=== PATIENT | male | born 1950 | race Caucasian/White ===

== ENCOUNTER → 2023-10-11 12:34 | Outpatient (REF) | payer OTHER, SELFPAY | LOC: PAVMRI 12:34 | PROVIDERS: ATTENDING PHYSICIAN Student in an Organized Health Care Education/Training Program | DX: R51.9 Headache, unspecified (principal) | CPT/HCPCS: 70551 ==

== ENCOUNTER 2023-10-22 13:12 | Emergency (ER) | payer OTHER, SELFPAY ==
[2023-10-22 13:17] VITALS: BP 137/65
--- NOTE | 2023-10-22 15:59 | ED.GENMED ---
History of Present Illness
General
Chief Complaint: Back Pain
Source: patient
Exam Limitations: none
Time Seen by Provider: 10/22/23 15:50
Travel History
Have you had any contact with someone who has COVID-19?: No
Do you have any symptoms of coronavirus? Fever > 100 degrees, chills, cough, shortness of breath, sore throat, loss of taste or smell, muscle aches, or headache?: No
History of Present Illness
History of Present Illness:
Patient pulled his back out playing top golf. No abdominal pain. No distal numbness tingling weakness. This happens occasionally. History of chronic back issues. Patient request steroids. Does not want other significant pain management or
x-rays. No bowel or bladder issues.
Past History
Past History
ED Past Medical History: Arrthythmia (afib on Eliquis and Flecinide prn), Cancer (Prostate), GERD, HTN and Other (neck/Back pain)
ED Past Surgical History: Orthopedic and Urological
Patient has exhibited threatening behavior?: No
PSI?: No
Social History
Tobacco: Non-smoker
Review of Systems
Review of Systems
All Other Systems: Not applicable
Constitutional: Denies fever or chills
Phy Exam
Physical Exam
Physical Exam:
General: Nontoxic appearing in no distress. Sitting up on the edge of the stretcher in no obvious distress.
Skin: Warm and dry, no rash
Neuro: Alert, nontoxic, grossly nonfocal
Psychiatric: Good eye contact and appropriate
Musculoskeletal: Uncomfortable with the active standing from a sitting position. Decreased flexion at the hip. Good lower extremity strength. No spinal tenderness. No warmth or erythema. Patient points to the lower paralumbar area as the source
of the pain.
Course
Orders/Labs/Results
Orders:
Orders
10/22/23 15:58
Acetaminophen [Tylenol] 1,000 mg PO NOW STA
Prednisone [Deltasone] 50 mg PO NOW STA
Vital Signs
Initial and Last Documented VS:
Initial Vital Signs
Temp Pulse Resp BP Pulse Ox
98.0 F 61 16 137/65 98
10/22/23 13:17 10/22/23 13:17 10/22/23 13:17 10/22/23 13:17 10/22/23 13:17
Last Documented Vital Signs
Temp Pulse Resp BP Pulse Ox
98.0 F 61 16 137/65 98
10/22/23 13:17 10/22/23 13:17 10/22/23 13:17 10/22/23 13:17 10/22/23 13:17
MDM/Problems Addressed
Differential Diagnosis Includes:
Patient with muscular leg low back pain. Nothing to point to any significant nerve impingement. No bowel or bladder no distal numbness tingling or weakness. No acute trauma. No indication for lumbar x-rays at this time. Steroids and follow-up.
*Pulse Oximetry
Patient hypoxic: no
*Critical Care Note
Total Time (30-74mins, 75-104mins- exclusive of procedures): Not Applicable
Data Reviewed
Review of Other/Old Records Reveals: Records
ED Attending Note
-
Portions of this chart may have been created with voice recognition software.� Occasional wrong word or��sound alike� substitutions may have occurred due to the inherent limitations of voice recognition software.
Discharge Plan
Departure
Patient Disposition: Home (Routine Discharge)
Date of Disposition: 10/22/23
Time of Disposition: 16:01
Patient with high blood pressure during this ER visit?: Yes
Discharge Problem:
Low back strain
Instructions: Low Back Pain (DC), BLOOD PRESSURE
Prescriptions:
New
prednisone 50 mg tablet
50 mg PO DAILY Qty: 5 0RF
No Action
Flecainide
1 tab PO PRN PRN (Reason: atrial fib)
famotidine 20 MG tablet
20 mg PO DAILY
hydrochlorothiazide 12.5 MG tablet
12.5 mg PO DAILY
apixaban [Eliquis] 5 MG tablet
5 mg PO BID
metoprolol tartrate 25 MG tablet
25 mg PO BID Qty: 30 0RF
ondansetron 4 mg tablet,disintegrating
4 mg PO Q8H PRN (Reason: nausea and vomiting) Qty: 10 0RF
Referrals:
Ju Javier MD [Family Provider] - Follow up in 2-3 days
Activity Restrictions/Additional Instructions:
Tylenol for pain
Recheck with increased pain numbness tingling weakness fever or any other concerning symptoms
Interventions
Interventions:
*ED COVID-19 Vaccine History Last Done: 10/22/23 13:17
Discharge Date and Time
Print Language: CHILEAN
[2023-10-22] MEDS: DELTASONE 50 MG PO (16:19)
[2023-10-22] MEDS: TYLENOL 1000 MG PO (16:20)
[2023-10-22 16:42] VITALS: BP 141/74
== END 2023-10-22 16:43 | disposition home or self-care (01) ==
LOC: EMR 13:12
PROVIDERS: EMERGENCY PHYSICIAN Emergency Medicine; FAMILY PHYSICIAN Student in an Organized Health Care Education/Training Program
DX: S39.012A Strain of muscle, fascia and tendon of lower back, initial encounter (principal); X58.XXXA Exposure to other specified factors, initial encounter; I48.91 Unspecified atrial fibrillation; K21.9 Gastro-esophageal reflux disease without esophagitis; I10 Essential (primary) hypertension
CPT/HCPCS: 99282

== ENCOUNTER → 2024-01-23 12:35 | Outpatient (REF) | payer OTHER, SELFPAY | LOC: HWRAD 12:35 | PROVIDERS: ATTENDING PHYSICIAN Student in an Organized Health Care Education/Training Program | DX: M25.511 Pain in right shoulder (principal) | CPT/HCPCS: 73020; 73060 ==

== ENCOUNTER → 2024-04-17 06:38 | Outpatient (REF) | payer OTHER, SELFPAY | LOC: PAVMRI 06:38 | PROVIDERS: ATTENDING PHYSICIAN Specialist; FAMILY PHYSICIAN Student in an Organized Health Care Education/Training Program | DX: M25.511 Pain in right shoulder (principal) | CPT/HCPCS: 73221 ==

== ENCOUNTER → 2024-06-21 15:10 | Outpatient (REF) | payer OTHER, SELFPAY ==
[2024-06-21 16:25] LABS: % Basophils 0.6 % (0-2); % Eosinophils 1.7 % (0-6); % Immature Granulocytes 0.4 % (0-0.5); % Lymphocytes 13.1 % (20.5-51.1); % Monocytes 9.6 % (1.7-9.3); % Neutrophils 74.6 % (42.2-75.2); Absolute Basophils 0.1 10^3/uL (0-0.2); Absolute Eosinophils 0.2 10^3/uL (0-0.7); Absolute Lymphocytes 1.2 10^3/uL (1.2-3.4); Absolute Monocytes 0.9 10^3/uL (0.1-0.6); Absolute Neutrophils 6.9 10^3/uL (1.4-6.5); Hematocrit 40.1 % (39.0-52.0); Mean Corp Hgb Conc. 32.4 g/dL (33.0-37.0); Mean Corpuscular Hgb 29.1 pg (27.0-31.0); Mean Corpuscular Volume 89.9 fL (80.0-94.0); Mean Platelet Volume 11.2 fL (7.4-10.4); Nucleated Red Blood Cells % 0 % (-); Platelet Count 276 10^3/uL (130-400); Red Blood Cell Count 4.46 10^6/uL (4.70-6.10); Red Cell Dist. Width 12.3 % (11.5-14.5); White Blood Cell Count 9.3 10^3/uL (4.8-10.8)
[2024-06-21 16:36] LABS: Blood Urea Nitrogen 25 mg/dl (9-20); Calcium 9.5 mg/dl (8.4-10.2); Carbon Dioxide 28 mmol/L (22-30); Chloride 100 mmol/L (98-107); Glucose 100 mg/dl (70-99); Potassium 4.3 mmol/L (3.5-5.1); Sodium 137 mmol/L (135-145); eGFR > 60.00
== END ==
LOC: RAD 15:10
PROVIDERS: ATTENDING PHYSICIAN Specialist
DX: Z01.818 Encounter for other preprocedural examination (principal)
CPT/HCPCS: 36415; 80048; 85025; 93005

== ENCOUNTER → 2024-09-25 09:13 | Outpatient (REF) | payer OTHER, SELFPAY | LOC: WDC 09:13 | PROVIDERS: ATTENDING PHYSICIAN Student in an Organized Health Care Education/Training Program | DX: N64.4 Mastodynia (principal) | CPT/HCPCS: 76642; 77062; 77066 ==

== ENCOUNTER 2024-12-04 06:12 | Day surgery (SDC) | payer OTHER, SELFPAY ==
[2024-12-04] VITALS (7 sets, daily range): BP systolic 118–149; BP diastolic 69–80; BMI 21.0
--- NOTE | 2024-12-04 08:35 | PTCARENOTE ---
Dr. Pugh made aware that patient went for cardiac clearance but we do not have a copy in either computer system. Patient did see cardiology. Dr. Pugh ok with proceeding without the consent. Dr. Zambrano also [place] Texted to make him aware. Will monitor
patient.
== END 2024-12-04 11:16 | disposition home or self-care (01) ==
LOC: GI 06:12
PROVIDERS: ATTENDING PHYSICIAN Internal Medicine Gastroenterology
DX: Z12.11 Encounter for screening for malignant neoplasm of colon (principal); K64.0 First degree hemorrhoids; D12.0 Benign neoplasm of cecum; D12.3 Benign neoplasm of transverse colon; D12.5 Benign neoplasm of sigmoid colon; Z86.0101 Personal history of adenomatous and serrated colon polyps
CPT/HCPCS: 45385; 88305

== ENCOUNTER → 2024-12-11 06:33 | Outpatient (REF) | payer OTHER, SELFPAY | LOC: MRI 3T 06:33 | PROVIDERS: ATTENDING PHYSICIAN Pain Medicine Pain Medicine; FAMILY PHYSICIAN Student in an Organized Health Care Education/Training Program | DX: M43.06 Spondylolysis, lumbar region (principal); M47.816 Spondylosis without myelopathy or radiculopathy, lumbar region | CPT/HCPCS: 72148 ==

== ENCOUNTER → 2025-02-18 06:50 | Outpatient (REF) | payer OTHER, SELFPAY | LOC: MRI 3T 06:50 | PROVIDERS: ATTENDING PHYSICIAN Neurological Surgery; FAMILY PHYSICIAN Student in an Organized Health Care Education/Training Program | DX: M54.12 Radiculopathy, cervical region (principal) | CPT/HCPCS: 72141 ==

== ENCOUNTER → 2025-03-25 13:04 | Outpatient (REF) | payer OTHER, SELFPAY | LOC: RCS 13:04 | PROVIDERS: ATTENDING PHYSICIAN Specialist | DX: Z01.818 Encounter for other preprocedural examination (principal) | CPT/HCPCS: 93005 ==

== ENCOUNTER → 2025-04-11 07:37 | Outpatient (REF) | payer OTHER, SELFPAY | LOC: PAVMRI 07:37 | PROVIDERS: ATTENDING PHYSICIAN Nurse Practitioner Adult Health; FAMILY PHYSICIAN Student in an Organized Health Care Education/Training Program | DX: K86.2 Cyst of pancreas (principal) | CPT/HCPCS: 74183; A9575 ==

== ENCOUNTER 2025-05-03 12:21 | Emergency (ER) | payer OTHER, SELFPAY ==
[2025-05-03 12:29] VITALS: BP 138/72
--- NOTE | 2025-05-03 15:29 | ED.GENMED ---
History of Present Illness
General
Chief Complaint: Back Pain
Source: patient
Exam Limitations: none
Time Seen by Provider: 05/03/25 15:15
Nursing documentation reviewed up to this point in time: agreed with
History of Present Illness
History of Present Illness:
Patient is a 71-year-old male who presents to the got ER complaining of low back pain. He reports around 11 am he was attempting to sit down and my back went out.' He has had this happened several times in the past. When this occurrs he has has
had improvement with steroid and muscle relaxer. He has not taken additionally for pain today. He denies any radiation to legs. Denies any trauma. Denies any loss of bowel/bladder.
Past History
Past History
ED Past Medical History: Arrthythmia (afib on Eliquis and Flecinide prn), Cancer (Prostate), GERD, HTN and Other (neck/Back pain)
ED Past Surgical History: Orthopedic and Urological
Patient has exhibited threatening behavior?: No
PSI?: No
Social History
Tobacco: Non-smoker
Phy Exam
General Physical Exam
General Presentation: no apparent distress
General age: appears stated age
General Skin: warm and dry
General Habitus: normal
General Mental: alert
General Hydration: appears well hydrated
Neurological Exam
Neurological Exam: alert, oriented x3, no motor deficits, no sensory deficits and other (Negative straight leg raise b/l )
Musculoskeletal Exam
Musculoskeletal Exam: full ROM and other (Normal inspection to back no bony midline tenderness; + discomfort with sitting up in the stretcher )
Skin Exam
Skin Exam: normal color and warm/dry
Psychiatric Exam
Psychiatric Exam: normal mood/affect
Course
Orders/Labs/Results
Orders:
Orders
05/03/25 15:32
Acetaminophen [Tylenol] 1,000 mg PO NOW STA
Dexamethasone Pf [Decadron] 10 mg PO NOW STA
Lidocaine [Lidocaine 4% Patch] 1 patch TOPICAL NOW STA
Apply Lidocaine patch(s) to:: lumbar back
diazePAM [Valium Injection] 5 mg IM NOW STA
Vital Signs
Initial and Last Documented VS:
Initial Vital Signs
Temp Pulse Resp BP Pulse Ox
97.6 F 55 22 138/72 100
05/03/25 12:05/03/25 12:05/03/25 12:05/03/25 12:05/03/25 12:29
Last Documented Vital Signs
Temp Pulse Resp BP Pulse Ox
97.6 F 55 22 138/72 100
05/03/25 12:05/03/25 12:05/03/25 12:05/03/25 12:05/03/25 15:32
MDM/Problems Addressed
Differential Diagnosis Includes:
Not limited to lumbar sprain strain less likely sciatica.
MDM/Problems Addressed:
Symptoms are consistent with lumbar sprain strain muscle spasm. Patient has had this multiple times in the past he received Valium steroids feeling much better will DC with steroids as well as muscle relaxers. Patient though he does not have any
active signs of radiculopathy reports he has done very well with steroids in the past for similar symptoms.
*Pulse Oximetry
SaO2: 100
Oxygen Mode of Delivery: Room air
Patient hypoxic: no
*Critical Care Note
Total Time (30-74mins, 75-104mins- exclusive of procedures): Not Applicable
ED Attending Note
-
Portions of this chart may have been created with voice recognition software.� Occasional wrong word or��sound alike� substitutions may have occurred due to the inherent limitations of voice recognition software.
Discharge Plan
Departure
Patient Disposition: Home (Routine Discharge)
Date of Disposition: 05/03/25
Time of Disposition: 16:29
Patient with high blood pressure during this ER visit?: Yes
Covid-19: Not Applicable
Discharge Problem:
Lumbar strain
Instructions: Low Back Pain (DC), BLOOD PRESSURE
Prescriptions:
New
prednisone 20 mg tablet
40 mg PO DAILY Qty: 10 0RF
cyclobenzaprine 10 mg tablet
10 mg PO TID PRN (Reason: muscle spasm) Qty: 10 0RF
No Action
famotidine 20 MG tablet
20 mg PO DAILY PRN (Reason: indegestion)
Eliquis 5 MG tablet
5 mg PO BID
diltiazem HCl 120 mg Tablet
120 mg PO DAILY
prednisone 50 mg tablet
PO DAILY PRN (Reason: back pain)
Rx Instructions:
dose pack prn
duloxetine 30 mg Capsule,Delayed Release(Dr/Ec)
30 mg PO DAILY
Metanx
2 tab PO DAILY
EB-A7 DR 200-13.33 mg Capsule,Delayed Release(Dr/Ec)
1 cap PO BID
One-A-Day 50 Plus Tablet
1 tab PO DAILY
Referrals:
Ju Javier MD [Family Provider, Internal Medicine]
Activity Restrictions/Additional Instructions:
As discussed a prescription for muscle relaxer along with a steroid was sent to pharmacy take as directed. Steroids are to be taking for the next 5 days starting tomorrow. No driving or drinking alcohol while taking the muscle relaxer. This will
cause drowsiness. You May also take Tylenol as needed. Follow-up closely with your family doctor in the next several days and return if any worsening of symptoms.
Interventions
Interventions:
*Neglect/Abuse Screening Last Done: 05/03/25 12:29
*Risk Screen - Suicide (C-SSRS) Last Done: 05/03/25 12:29
*Nursing Disposition Last Done: 05/03/25 16:37
ED-Musculoskeletal Assessment Last Done: 05/03/25 16:04
Discharge Date and Time
Discharge Date/Time: 05/03/25 16:38
Print Language: MALAYSIAN
[2025-05-03] MEDS: DECADRON 10 MG PO (15:48)
[2025-05-03] MEDS: VALIUM INJECTION 5 MG IM (15:49)
[2025-05-03] MEDS: TYLENOL 1000 MG PO (15:50)
[2025-05-03] MEDS: LIDOCAINE 4% PATCH 1 PATCH TOPICAL (15:50)
== END 2025-05-03 16:38 | disposition home or self-care (01) ==
LOC: EMR 12:21
PROVIDERS: EMERGENCY PHYSICIAN Emergency Medicine; FAMILY PHYSICIAN Student in an Organized Health Care Education/Training Program
DX: S39.012A Strain of muscle, fascia and tendon of lower back, initial encounter (principal); X58.XXXA Exposure to other specified factors, initial encounter; I48.91 Unspecified atrial fibrillation; I10 Essential (primary) hypertension; K21.9 Gastro-esophageal reflux disease without esophagitis; Z79.01 Long term (current) use of anticoagulants
CPT/HCPCS: 99284; 96372